=== PATIENT | male | born 1980 | race Caucasian/White ===

== ENCOUNTER 2017-07-23 11:51 | Inpatient (IN) | payer OTHER ==
[2017-07-23 13:41] VITALS: BMI 26.6
--- NOTE | 2017-07-23 17:19 | HP ---
CIWA Score - CIWA Score Nausea/Vomitin-No Nausea/No Vomiting Muscle Tremors: 3 Anxiety: 4-Mod. Anxious/Guarded Agitation: 4-Moderately Restless Paroxysmal Sweats: 1-Minimal Palms Moist Orientation: 0-Oriented Tacttile Disturbances: 2-Mild Itch/Numbness/Burn Auditory Disturbances: 0-None Visual Disturbances: 0-None Headache: 0-None Present CIWA-Ar Total Score: 14 Admission ROS BHS - HPI Chief Complaint: WITHDRAWAL SX FROM ALCOHOL Allergies/Adverse Reactions: Allergies Allergy/AdvReac Type Severity Reaction Status Date / Time No Known Allergies Allergy Verified 07/23/17 16:41 History of Present Illness: 37 Y/O H/MALE WITH A HX ALCOHOL AND MARIJUANA DEPENDENCE SEEKING DETOX TX. FIRST TIME HERE. Exam Limitations: No Limitations - Ebola screening Have you traveled outside of the country in the last 21 days: No (N) Have you had contact with anyone from an Ebola affected area: No Have you been sick,other than usual withdrawal symptoms: No Do you have a fever: No - Review of Systems Constitutional: Changes in sleep, Unintentional Wgt. Loss EENT: reports: Blurred Vision (WEARS GLASSES), Dental Problems (CAVITIES/ MISSING TEETH) Respiratory: reports: No Symptoms reported Cardiac: reports: No Symptoms Reported GI: reports: No Symptoms Reported : reports: No Symptoms Reported Musculoskeletal: reports: Back Pain, Joint Pain, Muscle Pain Integumentary: reports: No Symptoms Reported Neuro: reports: Headache, Unsteady Gait Endocrine: reports: No Symptoms Reported Hematology: reports: No Symptoms Reported Psychiatric: reports: Anxious, Depressed Other Systems: Reviewed and Negative Patient History - Patient Medical History Hx Anemia: No Hx Asthma: No Hx Chronic Obstructive Pulmonary Disease (COPD): No Hx Cardiac Disorders: No Hx Hypertension: No Hx Hypercholesterolemia: No HX Cerebrovascular Accident: No Hx Seizures: No Hx Diabetes: No Hx Gastrointestinal Disorders: No Hx Genitourinary Disorders: No Hx Sexually Transmitted Disorders: Yes ([place]) Hx Renal Disease (ESRD): No Hx Thyroid Disease: No Hx Human Immunodeficiency Virus (HIV): No (NEGATIVE HX) Hx Hepatitis C: No Hx Depression: Yes (AND ADHD) Hx Suicide Attempt: No (DENIES) Hx Schizophrenia: No - Patient Surgical History Past Surgical History: Yes Hx Abdominal Surgery: Yes (Umbillical hernia repair) Anesthesia Reaction: No - PPD History Previous Implant?: Yes Documented Results: Negative w/o proof Implanted On Prior R Admission?: No PPD to be Administered?: Yes - Reproductive History Patient is a Female of Child Bearing Age (11 -55 yrs old): No (MALE) - Smoking Cessation Smoking history: Current every day smoker Have you smoked in the past 12 months: Yes Aproximately how many cigarettes per day: 3 Hx Chewing Tobacco Use: No Initiated information on smoking cessation: Yes 'Breaking Loose' booklet given: 07/23/17 - Substance & Tx. History Hx Alcohol Use: Yes (BEER) Hx Substance Use: Yes (MARIJUANA/ECSTASY) Substance Use Type: Alcohol Hx Substance Use Treatment: Yes (IN [facility] PT PROGRAM) - Substances Abused Alcohol Route: Oral Frequency: Daily Amount used: 2 24 OZ CANS Age of first use: 15 Date of Last Use: 07/23/17 Marijuana/Hashish Route: Smoking Frequency: 1-2 times per week Amount used: 1 BLUNT Age of first use: 12 Date of Last Use: 07/22/17 rc Route: Oral Frequency: Daily Amount used: 2 bags Age of first use: 36 Date of Last Use: 07/22/17 Family Disease History - Family Disease History Family Disease History: Diabetes: Father (HTN;BKA), Other: Father Admission Physical Exam S - Vital Signs Vital Signs: Vital Signs - 24 hr 07/23/17 13:39 Temperature 98.7 F Pulse Rate 100 H Respiratory 18 Rate Blood Pressure 130/80 - Physical General Appearance: Yes: Moderate Distress, Irritable, Anxious HEENTM: Yes: EOMI, Normocephalic, Pharynx Normal Respiratory: Yes: Chest Non-Tender, Lungs Clear, Normal Breath Sounds, No Respiratory Distress Neck: Yes: No masses,lesions,Nodules, Supple, Trachea in good position Breast: Yes: Breast Exam Deferred Cardiology: Yes: Regular Rhythm, Regular Rate, S1, S2 Abdominal: Yes: Normal Bowel Sounds, Non Tender, Flat Genitourinary: Yes: Other (N/C) Back: Yes: Within Normal Limits Musculoskeletal: Yes: full range of Motion, Gait Steady Extremities: Yes: Normal Range of Motion, Non-Tender Neurological: Yes: swift tender II-XII NML intact, Fully Oriented, Alert, Motor Strength 5/5 Integumentary: Yes: Dry, Warm Lymphatic: Yes: Within Normal Limits - Diagnostic (1) Alcohol dependence with uncomplicated withdrawal Current Visit: Yes Status: Acute (2) Cannabis dependence, uncomplicated Current Visit: Yes Status: Acute (3) Nicotine dependence Current Visit: Yes Status: Acute Qualifiers: Nicotine product type: cigarettes Substance use status: in withdrawal Qualified Code(s): F17.213 - Nicotine dependence, cigarettes, with withdrawal (4) History of depression Current Visit: Yes Status: Chronic Cleared for Admission [facility] - Detox or Rehab [facility] Level of Care: Medically Managed Detox Regimen/Protocol: Librium [facility] Breath Alcohol Content Breath Alcohol Content: 0 Urine Drug Screen - Results Drug Screen Negative: No Urine Drug Screen Results: THC-Marijuana
[2017-07-23] MEDS ORDERED: MAGNESIUM CITRATE 300 ML BOTTLE PO PRN (17:32)
[2017-07-23] MEDS ORDERED: NICOTINE POLACRILEX 2 MG GUM BC PRN (17:32)
[2017-07-23] MEDS ORDERED: LOPERAMIDE HCL 2 MG CAPSULE PO PRN (17:32)
[2017-07-23] MEDS ORDERED: P-EPHED 60MG/TRIPROLIDI 2.5MG TABLET PO PRN (17:32)
[2017-07-23] MEDS ORDERED: hydrOXYzine PAMOATE 50 MG CAPSULE (FP) PO PRN (17:32)
[2017-07-23] MEDS ORDERED: chlordiazePOXIDE HCL 25 MG CAPSULE PO PRN (17:32)
[2017-07-23] MEDS ORDERED: MAGNESIUM HYDROX 2400MG/30ML ORAL SUSPENSION 30 ML CUP PO PRN (17:32)
[2017-07-23] MEDS ORDERED: guaiFENesin/D-METHORPHAN HB 10 ML UNIT-DOSE CUPS PO PRN (17:32)
[2017-07-23] MEDS ORDERED: MAG HYDROX/AL HYDROX/SIMETH 30 ML UNIT-DOSE CUP PO PRN (17:32)
[2017-07-23] MEDS ORDERED: MENTHOL/PHENOL 1 EACH UD MM PRN (17:32)
[2017-07-23] MEDS ORDERED: chlordiazePOXIDE HCL 25 MG CAPSULE PO ONE (18:00)
[2017-07-23] MEDS: NICOTINE 14 MG/24 HOURS TOPICAL PATCH TD SCH (18:41)
[2017-07-23] MEDS: chlordiazePOXIDE HCL 25 MG CAPSULE PO SCH (22:21)
[2017-07-23] MEDS: THIAMINE HCL 100 MG TABLET (FP) PO SCH (22:21)
[2017-07-24 03:13] LABS: URINE APPEARANCE CLEAR; URINE BILIRUBIN NEGATIVE (NEGATIVE); URINE BLOOD NEGATIVE (NEGATIVE); URINE COLOR LTYELLOW; URINE GLUCOSE (UA) NEGATIVE (NEGATIVE); URINE KETONE NEGATIVE (NEGATIVE); URINE LEUK ESTERASE NEGATIVE (NEGATIVE); URINE NITRITE NEGATIVE (NEGATIVE); URINE PROTEIN NEGATIVE (NEGATIVE); URINE UROBILINOGEN NEGATIVE mg/dL (0.2-1.0)
[2017-07-24] MEDS: chlordiazePOXIDE HCL 25 MG CAPSULE PO SCH ×4 (05:57→22:14)
[2017-07-24 10:19] LABS: ALBUMIN 3.7 g/dl (3.4-5.0); ANION GAP 10 (8-16); BLOOD UREA NITROGEN 12 mg/dL (7-18); CHLORIDE 106 mmol/L (98-107); CO2 26 mmol/L (21-32); GLUCOSE,RANDOM 97 mg/dL (74-106); SODIUM 142 mmol/L (136-145)
[2017-07-24] MEDS: NICOTINE 14 MG/24 HOURS TOPICAL PATCH TD SCH (10:21)
[2017-07-24] MEDS: PRENATAL VITAMINS W/ FOLIC ACID TABLET (FP) PO SCH (10:21)
[2017-07-24 10:24] LABS: ALK PHOS 90 U/L (45-117); BILIRUBIN,TOTAL 0.5 mg/dL (0.2-1.0); CREATININE 0.9 mg/dL (0.7-1.3); SGOT/AST 13 U/L (15-37); SGPT/ALT 25 U/L (12-78); TOT PROT 6.6 g/dl (6.4-8.2)
[2017-07-24 10:36] LABS: HEMATOCRIT 42.1 % (35.4-49); HEMOGLOBIN 13.8 GM/dL (11.7-16.9); MCH 29.9 pg (25.7-33.7); MCHC 32.9 g/dl (32.0-35.9); MEAN CELL VOLUME 90.8 fl (80-96); PLATELET COUNT 144 K/MM3 (134-434); RBC 4.63 M/mm3 (4.00-5.60); RDW 13.9 % (11.9-15.9); WHITE BLOOD COUNT 5.8 K/mm3 (4.0-10.0)
--- NOTE | 2017-07-24 10:38 | PN ---
[facility] CIWA - CIWA Score Nausea/Vomitin-No Nausea/No Vomiting Muscle Tremors: 4-Moderate,w/Arms Extend Anxiety: 4-Mod. Anxious/Guarded Agitation: 3 Paroxysmal Sweats: 1-Minimal Palms Moist Orientation: 0-Oriented Tacttile Disturbances: 3-Moderate Itch/Numb/Burn Auditory Disturbances: 0-None Visual Disturbances: 0-None Headache: 0-None Present CIWA-Ar Total Score: 15 S Progress Note (SOAP) Subjective: ANXIETY,SWEATS/CHILLS,FATIGUE, Objective: 07/24/17 10:37 Vital Signs 07/24/17 07/24/17 06:40 09:54 Temperature 97.4 F L 96.1 F L Pulse Rate 102 H 110 H Respiratory 18 16 Rate Blood Pressure 108/69 110/62 Laboratory Last Values Sodium 142 mmol/L (136-145) 07/24/17 08:00 Potassium 4.0 mmol/L (3.5-5.1) 07/24/17 08:00 Chloride 106 mmol/L (98-107) 07/24/17 08:00 Carbon Dioxide 26 mmol/L (21-32) 07/24/17 08:00 Anion Gap 10 (8-16) 07/24/17 08:00 BUN 12 mg/dL (7-18) 07/24/17 08:00 Creatinine 0.9 mg/dL (0.7-1.3) 07/24/17 08:00 Creat Clearance w eGFR > 60 (>60) 07/24/17 08:00 Random Glucose 97 mg/dL (74-106) 07/24/17 08:00 Calcium 9.0 mg/dL (8.5-10.1) 07/24/17 08:00 Total Bilirubin 0.5 mg/dL (0.2-1.0) 07/24/17 08:00 AST 13 U/L (15-37) L 07/24/17 08:00 ALT 25 U/L (12-78) 07/24/17 08:00 Alkaline Phosphatase 90 U/L (45-117) 07/24/17 08:00 Total Protein 6.6 g/dl (6.4-8.2) 07/24/17 08:00 Albumin 3.7 g/dl (3.4-5.0) 07/24/17 08:00 Urine Color Ltyellow 07/23/17 06:30 Urine Appearance Clear 07/23/17 06:30 Urine pH 6.0 (5.0-8.0) 07/23/17 06:30 Ur Specific [place] 1.012 (1.001-1.035) 07/23/17 06:30 Urine Protein Negative (NEGATIVE) 07/23/17 06:30 Urine Glucose (UA) Negative (NEGATIVE) 07/23/17 06:30 Urine Ketones Negative (NEGATIVE) 07/23/17 06:30 Urine Blood Negative (NEGATIVE) 07/23/17 06:30 Urine Nitrite Negative (NEGATIVE) 07/23/17 06:30 Urine Bilirubin Negative (NEGATIVE) 07/23/17 06:30 Urine Urobilinogen Negative mg/dL (0.2-1.0) 07/23/17 06:30 Ur Leukocyte Esterase Negative (NEGATIVE) 07/23/17 06:30 Assessment: 07/24/17 10:37 WITHDRAWAL SX Plan: CONTINUE DETOX INCREASE PO FLUIDS.
--- NOTE | 2017-07-24 12:19 | CONSULT ---
[facility] Psychiatric Consult - Data Date of interview: 07/24/17 Admission source: [facility] Identifying data: First admission to [facility] for this male seeking detox treatment on for alcohol,ecstasy and marihuana dependence.Patient is ,a father of two,domiciled and currently employed. Substance Abuse History: Confirmed by patient in this interview.Details in current [facility] report : Smoking history: Current every day smoker. Have you smoked in the past 12 months: Yes. Aproximately how many cigarettes per day: 3. Hx Chewing Tobacco Use: No. Initiated information on smoking cessation: Yes. 'Breaking Loose' booklet given: 07/23/17. - Substance & Tx. History. Hx Alcohol Use: Yes (BEER). Hx Substance Use: Yes (MARIJUANA/ECSTASY). Substance Use Type: Alcohol. Hx Substance Use Treatment: Yes (IN [facility] PT [facility]GRAM). - Substances Abused. Alcohol. Route: Oral. Frequency: Daily. Amount used: 2 24 OZ CANS. Age of first use: 15. Date of Last Use: 07/23/17. Marijuana/Hashish. Route: Smoking. Frequency: 1-2 times per week. Amount used: 1 BLUNT. Age of first use: 12. Date of Last Use: 07/22/17. rc. Route: Oral. Frequency: Daily. Amount used: 2 bags. Age of first use: 36. Date of Last Use: 07/22/17 Medical History: Past history of treatment for syphilis and umbilical herniorraphy. Psychiatric History: No reported history of psychiatric hospitalizations.Patient is known to the [facility].Diagnosed with " mild depression " and briefly followed by a psychiatrist at a clinic in the [place] ( unknown dose of wellbutrin).No longer in OPD care.Dropped out of treatment several months ago as per self-report.Patient declines to resume antidepressant medications.Mr Lindquist denies history of suicide attempts. Physical/Sexual Abuse/Trauma History: Patient denies. Additional Comment: Urine Drug Screen Results: THC-Marijuana.Noted. Mental Status Exam - Mental Status Exam Alert and Oriented to: Time, Place, Person Cognitive Function: Good Patient Appearance: Well Groomed Mood: Hopeful, Euthymic Affect: Appropriate, Normal Range Patient Behavior: Appropriate, Cooperative Speech Pattern: Clear, Appropriate Voice Loudness: Normal Thought Process: Intact, Goal Oriented Thought Disorder: Not Present Hallucinations: Denies Suicidal Ideation: Denies Homicidal Ideation: Denies Insight/Judgement: Poor Sleep: Well Appetite: Good Muscle strength/Tone: Normal Gait/Station: Normal Psychiatric Findings - Problem List ([place] 1, 2,3) (1) Alcohol dependence with uncomplicated withdrawal Current Visit: Yes Status: Acute (2) Cannabis dependence, uncomplicated Current Visit: Yes Status: Acute (3) Nicotine dependence Current Visit: Yes Status: Acute Qualifiers: Nicotine product type: cigarettes Substance use status: in withdrawal Qualified Code(s): F17.213 - Nicotine dependence, cigarettes, with withdrawal - Initial Treatment Plan Initial Treatment Plan: Psychoeducation.Detoxification in progress.Observation.
[2017-07-24] MEDS: ACETAMINOPHEN 325 MG TABLET (FP) PO PRN (15:05)
--- NOTE | 2017-07-24 15:19 | EKG ---
Test Reason : Blood Pressure : / mmHG Vent. Rate : 080 BPM Atrial Rate : 080 BPM P-R Int : 148 ms QRS Dur : 100 ms QT Int : 336 ms P-R-T Axes : 038 045 014 degrees QTc Int : 387 ms NORMAL SINUS RHYTHM NONSPECIFIC T WAVE ABNORMALITY ABNORMAL ECG NO PREVIOUS ECGS AVAILABLE Confirmed by Josue Hoang MD ([id number]) on 07/24/2017 3:18:59 PM Referred By: Confirmed By:Josue Hoang MD
[2017-07-24 18:36] LABS: SICKLE CELL SCREEN POSITIVE (NEGATIVE)
[2017-07-24] MEDS: THIAMINE HCL 100 MG TABLET (FP) PO SCH (22:14)
[2017-07-24] MEDS: IBUPROFEN 400 MG TABLET (FP) PO PRN (22:34)
[2017-07-25] MEDS: chlordiazePOXIDE HCL 25 MG CAPSULE PO SCH ×3 (05:11→17:22)
[2017-07-25] MEDS: PRENATAL VITAMINS W/ FOLIC ACID TABLET (FP) PO SCH (10:05)
[2017-07-25] MEDS: NICOTINE 14 MG/24 HOURS TOPICAL PATCH TD SCH (10:06)
--- NOTE | 2017-07-25 12:33 | PN ---
[facility] CIWA - CIWA Score Nausea/Vomitin-No Nausea/No Vomiting Muscle Tremors: 4-Moderate,w/Arms Extend Anxiety: 4-Mod. Anxious/Guarded Agitation: 4-Moderately Restless Paroxysmal Sweats: 1-Minimal Palms Moist Orientation: 0-Oriented Tacttile Disturbances: 3-Moderate Itch/Numb/Burn Auditory Disturbances: 0-None Visual Disturbances: 0-None Headache: 0-None Present CIWA-Ar Total Score: 16 S Progress Note (SOAP) Subjective: ANXIETY,SWEATS, FATIGUE. Objective: 07/25/17 12:32 Vital Signs Temperature 97.6 F 07/25/17 10:08 Pulse Rate 96 H 07/25/17 10:08 Respiratory Rate 16 07/25/17 10:08 Blood Pressure 113/72 07/25/17 10:08 O2 Sat by Pulse Oximetry (%) Laboratory Last Values WBC 5.8 K/mm3 (4.0-10.0) 07/24/17 08:00 RBC 4.63 M/mm3 (4.00-5.60) 07/24/17 08:00 Hgb 13.8 GM/dL (11.7-16.9) 07/24/17 08:00 Hct 42.1 % (35.4-49) 07/24/17 08:00 MCV 90.8 fl (80-96) 07/24/17 08:00 MCH 29.9 pg (25.7-33.7) 07/24/17 08:00 MCHC 32.9 g/dl (32.0-35.9) 07/24/17 08:00 RDW 13.9 % (11.9-15.9) 07/24/17 08:00 Plt Count 144 K/MM3 (134-434) 07/24/17 08:00 MPV 10.0 fl (7.5-11.1) 07/24/17 08:00 Sickle Cell Screen Positive (NEGATIVE) 07/24/17 08:00 Sodium 142 mmol/L (136-145) 07/24/17 08:00 Potassium 4.0 mmol/L (3.5-5.1) 07/24/17 08:00 Chloride 106 mmol/L (98-107) 07/24/17 08:00 Carbon Dioxide 26 mmol/L (21-32) 07/24/17 08:00 Anion Gap 10 (8-16) 07/24/17 08:00 BUN 12 mg/dL (7-18) 07/24/17 08:00 Creatinine 0.9 mg/dL (0.7-1.3) 07/24/17 08:00 Creat Clearance w eGFR > 60 (>60) 07/24/17 08:00 Random Glucose 97 mg/dL (74-106) 07/24/17 08:00 Calcium 9.0 mg/dL (8.5-10.1) 07/24/17 08:00 Total Bilirubin 0.5 mg/dL (0.2-1.0) 07/24/17 08:00 AST 13 U/L (15-37) L 07/24/17 08:00 ALT 25 U/L (12-78) 07/24/17 08:00 Alkaline Phosphatase 90 U/L (45-117) 07/24/17 08:00 Total Protein 6.6 g/dl (6.4-8.2) 07/24/17 08:00 Albumin 3.7 g/dl (3.4-5.0) 07/24/17 08:00 Urine Color Ltyellow 07/23/17 06:30 Urine Appearance Clear 07/23/17 06:30 Urine pH 6.0 (5.0-8.0) 07/23/17 06:30 Ur Specific [place] 1.012 (1.001-1.035) 07/23/17 06:30 Urine Protein Negative (NEGATIVE) 07/23/17 06:30 Urine Glucose (UA) Negative (NEGATIVE) 07/23/17 06:30 Urine Ketones Negative (NEGATIVE) 07/23/17 06:30 Urine Blood Negative (NEGATIVE) 07/23/17 06:30 Urine Nitrite Negative (NEGATIVE) 07/23/17 06:30 Urine Bilirubin Negative (NEGATIVE) 07/23/17 06:30 Urine Urobilinogen Negative mg/dL (0.2-1.0) 07/23/17 06:30 Ur Leukocyte Esterase Negative (NEGATIVE) 07/23/17 06:30 RPR Titer Nonreactive (NONREACTIVE) 07/24/17 08:00 Assessment: 07/25/17 12:33 WITHDRAWAL SX Plan: CONTINUE DETOX
[2017-07-25] MEDS: chlordiazePOXIDE 5 MG CAPSULE PO SCH (22:21)
[2017-07-25] MEDS: THIAMINE HCL 100 MG TABLET (FP) PO SCH (22:21)
[2017-07-25] MEDS: IBUPROFEN 400 MG TABLET (FP) PO PRN (22:24)
[2017-07-26] MEDS: chlordiazePOXIDE 5 MG CAPSULE PO SCH ×3 (05:13→17:44)
[2017-07-26] MEDS: ACETAMINOPHEN 325 MG TABLET (FP) PO PRN ×3 (05:15→22:13)
[2017-07-26] MEDS: PRENATAL VITAMINS W/ FOLIC ACID TABLET (FP) PO SCH (10:22)
[2017-07-26] MEDS: NICOTINE 14 MG/24 HOURS TOPICAL PATCH TD SCH (10:23)
--- NOTE | 2017-07-26 10:47 | PN ---
[facility] Progress Note (SOAP) Subjective: DECREASED ANXIETY,TREMORS. SWEATS, FATIGUE. Objective: 07/26/17 10:47 Vital Signs Temperature 97.5 F L 07/26/17 09:25 Pulse Rate 97 H 07/26/17 09:25 Respiratory Rate 18 07/26/17 09:25 Blood Pressure 119/69 07/26/17 09:25 O2 Sat by Pulse Oximetry (%) Laboratory Last Values WBC 5.8 K/mm3 (4.0-10.0) 07/24/17 08:00 RBC 4.63 M/mm3 (4.00-5.60) 07/24/17 08:00 Hgb 13.8 GM/dL (11.7-16.9) 07/24/17 08:00 Hct 42.1 % (35.4-49) 07/24/17 08:00 MCV 90.8 fl (80-96) 07/24/17 08:00 MCH 29.9 pg (25.7-33.7) 07/24/17 08:00 MCHC 32.9 g/dl (32.0-35.9) 07/24/17 08:00 RDW 13.9 % (11.9-15.9) 07/24/17 08:00 Plt Count 144 K/MM3 (134-434) 07/24/17 08:00 MPV 10.0 fl (7.5-11.1) 07/24/17 08:00 Sickle Cell Screen Positive (NEGATIVE) 07/24/17 08:00 Sodium 142 mmol/L (136-145) 07/24/17 08:00 Potassium 4.0 mmol/L (3.5-5.1) 07/24/17 08:00 Chloride 106 mmol/L (98-107) 07/24/17 08:00 Carbon Dioxide 26 mmol/L (21-32) 07/24/17 08:00 Anion Gap 10 (8-16) 07/24/17 08:00 BUN 12 mg/dL (7-18) 07/24/17 08:00 Creatinine 0.9 mg/dL (0.7-1.3) 07/24/17 08:00 Creat Clearance w eGFR > 60 (>60) 07/24/17 08:00 Random Glucose 97 mg/dL (74-106) 07/24/17 08:00 Calcium 9.0 mg/dL (8.5-10.1) 07/24/17 08:00 Total Bilirubin 0.5 mg/dL (0.2-1.0) 07/24/17 08:00 AST 13 U/L (15-37) L 07/24/17 08:00 ALT 25 U/L (12-78) 07/24/17 08:00 Alkaline Phosphatase 90 U/L (45-117) 07/24/17 08:00 Total Protein 6.6 g/dl (6.4-8.2) 07/24/17 08:00 Albumin 3.7 g/dl (3.4-5.0) 07/24/17 08:00 Urine Color Ltyellow 07/23/17 06:30 Urine Appearance Clear 07/23/17 06:30 Urine pH 6.0 (5.0-8.0) 07/23/17 06:30 Ur Specific [place] 1.012 (1.001-1.035) 07/23/17 06:30 Urine Protein Negative (NEGATIVE) 07/23/17 06:30 Urine Glucose (UA) Negative (NEGATIVE) 07/23/17 06:30 Urine Ketones Negative (NEGATIVE) 07/23/17 06:30 Urine Blood Negative (NEGATIVE) 07/23/17 06:30 Urine Nitrite Negative (NEGATIVE) 07/23/17 06:30 Urine Bilirubin Negative (NEGATIVE) 07/23/17 06:30 Urine Urobilinogen Negative mg/dL (0.2-1.0) 07/23/17 06:30 Ur Leukocyte Esterase Negative (NEGATIVE) 07/23/17 06:30 RPR Titer Nonreactive (NONREACTIVE) 07/24/17 08:00 Assessment: 07/26/17 10:47 WITHDRAWAL SX Plan: CONTINUE DETOX
[2017-07-26] MEDS: IBUPROFEN 400 MG TABLET (FP) PO PRN (17:46)
[2017-07-26] MEDS: chlordiazePOXIDE HCL 10 MG CAPSULE PO SCH (22:12)
[2017-07-26] MEDS: THIAMINE HCL 100 MG TABLET (FP) PO SCH (22:12)
[2017-07-27] MEDS: chlordiazePOXIDE HCL 10 MG CAPSULE PO SCH ×2 (05:16→10:15)
[2017-07-27] MEDS: ACETAMINOPHEN 325 MG TABLET (FP) PO PRN (05:37)
[2017-07-27 09:49] VITALS: BP 121/70; PULSE 95; TEMP 97.2
[2017-07-27] MEDS: PRENATAL VITAMINS W/ FOLIC ACID TABLET (FP) PO SCH (10:35)
[2017-07-27] MEDS: NICOTINE 14 MG/24 HOURS TOPICAL PATCH TD SCH (10:35)
--- NOTE | 2017-07-27 10:43 | DS ---
[facility] Detox Discharge Summary Admission Date: 07/23/17 Discharge Date: 07/27/17 - Physical Exam Results Vital Signs: Vital Signs Temperature 97.2 F L 07/27/17 09:49 Pulse Rate 95 H 07/27/17 09:49 Respiratory Rate 20 07/27/17 09:49 Blood Pressure 121/70 07/27/17 09:49 O2 Sat by Pulse Oximetry (%) - Medication Discharge Medications: Ambulatory Orders NK [No Known Home Medication] 07/23/17 - Diagnosis (1) Alcohol dependence with uncomplicated withdrawal Current Visit: Yes Status: Acute (2) Cannabis dependence, uncomplicated Current Visit: Yes Status: Acute (3) Nicotine dependence Current Visit: Yes Status: Acute Qualifiers: Nicotine product type: cigarettes Substance use status: in withdrawal Qualified Code(s): F17.213 - Nicotine dependence, cigarettes, with withdrawal (4) History of depression Current Visit: Yes Status: Chronic
[2017-07-27 16:29] LABS: HGB SOLUBILITY Positive (Negative); Hgb C 0 % (0.0); Hgb F 0.5 % (0.0-2.0); Hgb S 38.3 % (0.0)
== END 2017-07-27 09:28 | disposition home or self-care (01) | DRG 775 ==
LOC: YASAS 11:51 → Y3N 17:30
PROVIDERS: ADMIT Internal Medicine; ATTEND Internal Medicine
PROC: HZ2ZZZZ Detoxification Services for Substance Abuse Treatment (ICD-10-PCS; principal; 2017-07-23)
DX: F10.230 Alcohol dependence with withdrawal, uncomplicated (principal); F12.20 Cannabis dependence, uncomplicated; F15.20 Other stimulant dependence, uncomplicated; F17.213 Nicotine dependence, cigarettes, with withdrawal; F32.9 Major depressive disorder, single episode, unspecified
CPT/HCPCS: 36415; 80053; 81003; 83021; 85027; 85660; 86593; 93005; 93010